=== PATIENT | male | born 1950 | race African-American/Black ===

== ENCOUNTER 2018-01-23 12:32 | Emergency (ER) | payer OTHER, MEDICAID ==
[~2018-01-23] VITALS: Ht 175.3 cm; Wt 67.0 kg
[~2018-01-23 12:32] MED LIST: AMLO10TA4 PO; Doxazosin Mesylate PO; ENAL20TA67 PO; KEPP500 PO; Multivitamins,Ther W-Minerals PO
[2018-01-23] MEDS ORDERED: QUET100T33 MT (13:31)
[2018-01-23] MEDS ORDERED: CLON0.5T12 MT (13:31)
[2018-01-23] MEDS ORDERED: DIVA125T31 MT (13:31)
[2018-01-23] MEDS ORDERED: ESCI5TAB10 MT (13:31)
[2018-01-23] MEDS ORDERED: TRAZ-212 MT (13:31)
[2018-01-23] MEDS ORDERED: OMEP20TA2 MT (13:31)
[2018-01-23] MEDS ORDERED: ASPI-1159 MT (13:31)
[2018-01-23] MEDS ORDERED: DONE5TAB33 MT (13:31)
[2018-01-23] MEDS ORDERED: FERR325T6 MT (13:31)
[2018-01-23] MEDS ORDERED: NIFE60TA64 MT (13:31)
[2018-01-23] MEDS ORDERED: LIDOCAINE HCL/PF 1% 10 MG/ML 5ML VIAL IJ ONE (15:45)
[2018-01-23 17:36] VITALS: BP 160/90
== END 2018-01-23 17:36 | disposition home or self-care (01) ==
LOC: ER 12:32
DX: M70.22 Olecranon bursitis, left elbow (principal); I10 Essential (primary) hypertension; F03.90 Unspecified dementia, unspecified severity, without behavioral disturbance, psychotic disturbance, mood disturbance, and anxiety; Z87.891 Personal history of nicotine dependence; Z79.899 Other long term (current) drug therapy; Y93.89 Activity, other specified
CPT/HCPCS: 20605; 73080; 87070; 87205; 89050; 99284; J3490